=== PATIENT | female | born 1975 | race Two or more races ===

== ENCOUNTER 2018-08-22 03:51 | Emergency (ER) | payer MEDICAID, OTHER ==
[~2018-08-22] VITALS: Ht 157.5 cm; Wt 81.3 kg
[~2018-08-22 03:51] MED LIST: IBUP-1222 PO; PREN-53 PO
[2018-08-22] MEDS ORDERED: RANI-276 PO (04:43)
[2018-08-22] MEDS ORDERED: MAALOX/HYOSCYAMINE/LIDOCAINE 45 ML BTL PO ONE (05:00)
[2018-08-22] MEDS ORDERED: FAMOTIDINE 20 MG/2 ML IVP ONE (05:00)
[2018-08-22] MEDS ORDERED: SODIUM CHLORIDE FLUSH 10ML SYR IVF ONE (05:00)
[2018-08-22] MEDS ORDERED: ONDANSETRON ODT 4 MG PO ONE (05:00)
[2018-08-22] MEDS ORDERED: ONDANSETRON ODT 4 MG ONE (05:10)
[2018-08-22] MEDS ORDERED: MAALOX/HYOSCYAMINE/LIDOCAINE 45 ML BTL ONE (05:10)
[2018-08-22] MEDS ORDERED: FAMOTIDINE 20 MG/2 ML ONE (05:10)
[2018-08-22 05:12] LABS: BASOPHILS # (AUTO) 0.02 x10^3/uL (0-0.1); BASOPHILS % (AUTO) 0 % (0-1); EOSINOPHILS # (AUTO) 0.06 x10^3/uL (0-0.4); EOSINOPHILS % (AUTO) 1 % (1-7); LYMPHOCYTES # (AUTO) 1.09 x10^3/uL (1-3.4); LYMPHOCYTES % (AUTO) 15 % (22-44); MD NO; MEAN CORPUSCULAR HEMOGLOBIN 27.9 pg (27.0-34.8); MEAN CORPUSCULAR HGB CONC 33.3 g/dL (32.4-35.8); MEAN CORPUSCULAR VOLUME 83.6 fL (80-100); MEAN PLATELET VOLUME 9.3 fL (7.4-10.4); MONOCYTES # (AUTO) 0.42 x10^3/uL (0.2-0.8); MONOCYTES % (AUTO) 6 % (2-9); NEUTROPHILS # (AUTO) 5.71 x10^3/uL (1.8-6.8); NEUTROPHILS % (AUTO) 78 % (42-75); PLATELET COUNT 218 x10^3/uL (130-400); RED BLOOD COUNT 5.33 x10^6/uL (3.82-5.3); RED CELL DISTRIBUTION WIDTH 14.2 % (9.6-15.2)
[2018-08-22 05:26] LABS: ALBUMIN 3.9 g/dL (3.4-5.0); ANION GAP 8 mmol/L (5-15); CALCIUM 8.4 mg/dL (8.5-10.1); CHLORIDE 105 mmol/L (98-107)
[2018-08-22 05:32] LABS: ALANINE AMINOTRANSFERASE 26 U/L (12-78); ALKALINE PHOSPHATASE 136 U/L (45-117); BILIRUBIN,TOTAL 0.5 mg/dL (0.2-1.0); CREATININE 0.56 mg/dL (0.55-1.02); TOTAL PROTEIN 7.9 g/dL (6.4-8.2); TROPONIN I < 0.015 ng/mL (0.000-0.045)
[2018-08-22 05:53] LABS: CULTURE INDICATED? YES; MICROSCOPIC INDICATED
[2018-08-22] MEDS ORDERED: MORPHINE SULFATE 4 MG/ML, 1ML ONE (06:19)
[2018-08-22] MEDS ORDERED: MORPHINE SULFATE 4 MG/ML, 1ML IVPush ONE (06:30)
[2018-08-22 06:39] VITALS: BP 124/88
== END 2018-08-22 07:02 | disposition home or self-care (01) ==
LOC: ED 06:56
DX: K21.0 Gastro-esophageal reflux disease with esophagitis (principal); K29.00 Acute gastritis without bleeding
CPT/HCPCS: 36415; 76700; 80053; 81001; 83690; 84484; 84703; 85025; 87086; 93005; 96374; 96375; 99285; Q0162; S0028